=== PATIENT | male | born 2000 | race Two or more races ===

== ENCOUNTER 2024-09-01 18:06 | Emergency (ER) | payer OTHER ==
[~2024-09-01] VITALS: Ht 170.2 cm; Wt 72.6 kg
[2024-09-01] MEDS ORDERED: ACETAMINOPHEN 500 MG GEL..CAP PO ONE ×2 (19:00→19:55)
[2024-09-01] MEDS ORDERED: GUAIFENESIN/DEXTROMETHORPHAN 10ML BLIST.PACK PO ONE ×2 (19:00→19:55)
[2024-09-01 21:33] LABS: HEMATOCRIT 49.7 % (39.0-48.0); HEMOGLOBIN 16.5 g/dL (13-16.00); MEAN CELL VOLUME 85.5 fL (80.0-100.00); MEAN CORPUSCULAR HEMOGLOBIN 28.3 pg (27.00-32.0); MEAN CORPUSCULAR HGB CONC 33.1 g/dl (32.0-36.0); PLATELET COUNT 151 K/uL (150-450); RED BLOOD COUNT 5.81 M/uL (4.00-6.00); RED CELL DISTRIBUTION WIDTH 13.1 % (11.5-14.5)
[2024-09-01] MEDS ORDERED: OSELTAMIVIR PHOSPHATE 75 MG CAPSULE PO ONE ×2 (21:45→21:50)
[2024-09-01] MEDS ORDERED: OSEL75CA PO (21:57)
[2024-09-01] MEDS ORDERED: TUSSIN DM LIQU118 ML PO (21:57)
== END 2024-09-01 22:09 | disposition home or self-care (01) ==
LOC: ER 18:08
PROVIDERS: General Practice
DX: J10.1 Influenza due to other identified influenza virus with other respiratory manifestations (principal); R50.9 Fever, unspecified; Z20.822 Contact with and (suspected) exposure to COVID-19